=== PATIENT | female | born 1980 | race Caucasian/White ===

== ENCOUNTER 2017-07-15 11:50 | Day surgery (SDC) | payer OTHER ==
[2017-07-14 08:13] VITALS: BMI 27.8
[2017-07-15] MEDS ORDERED: Lactated Ringer's 1,000 ML IV ONE ×2 (14:27)
[2017-07-15] MEDS ORDERED: Midazolam 2 MG/2 ML VIAL ONE (14:54)
[2017-07-15] MEDS ORDERED: Propofol 10 mg/ml Inj (20 ML) ONE (14:54)
[2017-07-15] MEDS ORDERED: ceFAZolin IV 1 gm in Dextrose 1 GM/50 ML BAG IVPB ONE (15:00)
--- NOTE | 2017-07-15 15:42 | PCM.SURG1 ---
Surgeon's Initial Post Op Note - Surgeon's Notes Surgeon: amaya rivas md Window/Distribution Clerk: none Type of Anesthesia: General Endo, Local Pre-Operative Diagnosis: Chronic pelvic pain. Embedded IUD. Abnormal uterine bleeding Operative Findings: IUD embeded in posterior uterine wall lower uterine segment. Cervical polyp on posterior cervical lip. small endometrial polyps Post-Operative Diagnosis: Chronic pelvic pain. Embedded IUD. Abnormal uterine bleeding. Cervical polyps Operation Performed: hysteroscopic operative removal of IUD. D&C polypectomy. Cervical polyp excision Specimen/Specimens Removed: Endometrial curratage. Cervcical polyp. Paraguard IUD Estimated Blood Loss: EBL {In ML}: 5 Blood Products Given: N/A Drains Used: No Drains Post-Op Condition: Good Date of Surgery/Procedure: 07/15/17 Time of Surgery/Procedure: 15:42
--- NOTE | 2017-07-15 15:47 | PCM.OP ---
Operative Report - Operative Report Date of Surgery/Procedure: 07/15/17 Time of Surgery/Procedure: 15:44 Surgeon: amaya rivas md Electroencephalogram Technologist: none Anesthesia/Sedation: general with LMA Pre-Operative Diagnosis: Chronic pelvic pain. embedded IUD Post-Operative Diagnosis: Chronic pelvic pain. embedded IUD. Cervical polyp. Endometrial polyps Indication for Surgery: worsening pelvic pain. dyaparunia. embeded iud Operative Findings: IUD embedded in posterior lower uterine segment. cervical and endometrial polyps Procedure/Operation Description: hysteroscopic removal of IUD. hysteroscopic polypectomy. cerviccal polyp removal. D&C hysterescopy. . Detailed oparative report. DESCRIPTION: This is a 37 years old female with long- standing and worsening symptoms of pelvic pain. The patient described these symptoms to be debilitating and affecting her quality of life. Recent US showed embedded IUD, possible polyps in endoemtrial cavity. Decision was made to attempt a Hysteroscopic resection of polyps and removal of embedded iud. A prolong and detailed discussion about conservative versus surgical management of uterine fibroids was completed. The patient elected to proceed with surgical management, namely a Hysteroscopic resection. After proper consent was obtained from the patient, patient was taken to the operating room, placed in the dorsolithotomy position; general anesthesia was obtained without difficulty. She was draped and prepped appropriately for hysteroscopic procedure , her legs were placed in adjustable Medhat stirrups, and careful attention was placed to avoid hyperflexion or hypertrophic and of the lower extremities at the hip or knee joints. Montero catheter was inserted under sterile conditions. A dilator was inserted into the cervix, cervix dilated and hysteroscopy was advanced into the endometrial cavity and initial survey of the cavity showed an embedded iud in the posterior uterine wall. The IUD was grasped and carefully dislodged off the uterine wall. good hemostatis noted. A cervical polyp and endometrial polyps noted and resected and sent to pathology labeled appropriatly. Carefull D&C was completed due to multiple small polyps and degris in the endoemtrial cavity as noted on hysterescopic survey. All instruments removed under direct visualization, good hemostasis was noted. The patient emerged from general anesthesia without any difficulty. The patient was taken to the recovery room in stable condition. Prior to incision patient received prophylactic antibiotics, prior to closure sponge lap and needle counts are correct x2. Estimated Blood Loss: 5 Blood Replaced: none Sponge/Instrument Count: x2 Drains: none Complications: none Specimen: polyps and IUD Discharge & Condition: discharge home in stable condition with criteria met
[2017-07-15] MEDS ORDERED: Oxycodone/Acetaminophen 5/325 mg Tab PO PRN (15:51)
[2017-07-15] MEDS ORDERED: Albuterol-Ipratrop 3 mg / 0.5 (3 ml) UD ONE (15:57)
[2017-07-15] MEDS ORDERED: Sodium Chloride 0.9% 1,000 ML IV SCH (16:00)
[2017-07-15] MEDS ORDERED: Albuterol-Ipratrop 3 mg / 0.5 (3 ml) UD INH STA (16:06)
[2017-07-15] MEDS: HYDROmorphone 0.5 mg/0.5 ml ISec IVP PRN ×2 (16:06→16:21)
[2017-07-15] MEDS ORDERED: DiphenhydrAMINE 50 mg/ml Inj ONE (16:23)
[2017-07-15] MEDS ORDERED: Racepinephrine 2.25% Inhal Soln 0.5 ML UD INH ONE (16:27)
[2017-07-15] MEDS ORDERED: DiphenhydrAMINE 50 mg/ml Inj IVP STA (16:27)
--- NOTE | 2017-07-15 16:30 | CP.PCM.PN ---
Subjective - Date & Time of Evaluation Date of Evaluation: 07/15/17 Time of Evaluation: 15:50 - Subjective Subjective: patient transfered to recovery. patient states discomfort breathing, expriatory wheezing noted. duoneb treatment adminstered and solumederol. saturation and vitals stable will continue to monitor. Objective - Vital Signs/Intake and Output Vital Signs (last 24 hours): Temp Pulse Resp BP Pulse Ox 98.1 F 94 H 20 123/82 100 07/15/17 12:24 07/15/17 12:24 07/15/17 12:24 07/15/17 12:24 07/15/17 12:24 - Medications Medications: Current Medications Diphenhydramine HCl (Benadryl) 50 mg IVP STAT STA Stop: 07/15/17 16:28 Hydromorphone HCl (Dilaudid) 0.5 mg IVP Q15M PRN PRN Reason: Pain, severe (8-10) Stop: 07/15/17 17:52 Sodium Chloride (Sodium Chloride 0.9%) 1,000 mls @ 100 mls/hr IV .Q10H VICKIE Ondansetron HCl (Zofran Inj) 4 mg IVP ONCE PRN PRN Reason: Nausea/Vomiting Oxycodone/Acetaminophen (Percocet 5/325 Mg Tab) 1 tab PO Q4 PRN PRN Reason: Pain, moderate (4-7) Stop: 07/18/17 15:52 Racepinephrine (Racepinephrine 2.25% Inhl Soln) 0.5 ml INH ONCE ONE Stop: 07/15/17 16:28
--- NOTE | 2017-07-15 16:33 | CP.PCM.PN ---
Subjective - Date & Time of Evaluation Date of Evaluation: 07/15/17 Time of Evaluation: 16:30 - Subjective Subjective: patient reassed, no expriatory wheezing noted, patient now complaining of her tongue being heavy. she also now discloses that she has an allergy to toradol. bendadryl 50mg and racemic epinephrine adminstered. vitals stable. will montior Objective - Vital Signs/Intake and Output Vital Signs (last 24 hours): Temp Pulse Resp BP Pulse Ox 98.1 F 94 H 20 123/82 100 07/15/17 12:24 07/15/17 12:24 07/15/17 12:24 07/15/17 12:24 07/15/17 12:24 - Medications Medications: Current Medications Diphenhydramine HCl (Benadryl) 50 mg IVP STAT STA Stop: 07/15/17 16:28 Hydromorphone HCl (Dilaudid) 0.5 mg IVP Q15M PRN PRN Reason: Pain, severe (8-10) Stop: 07/15/17 17:52 Sodium Chloride (Sodium Chloride 0.9%) 1,000 mls @ 100 mls/hr IV .Q10H VICKIE Ondansetron HCl (Zofran Inj) 4 mg IVP ONCE PRN PRN Reason: Nausea/Vomiting Oxycodone/Acetaminophen (Percocet 5/325 Mg Tab) 1 tab PO Q4 PRN PRN Reason: Pain, moderate (4-7) Stop: 07/18/17 15:52 Racepinephrine (Racepinephrine 2.25% Inhl Soln) 0.5 ml INH ONCE ONE Stop: 07/15/17 16:28
[2017-07-15 17:54] VITALS: TEMP 98
--- NOTE | 2017-07-15 18:37 | CP.PCM.PN ---
Subjective - Date & Time of Evaluation Date of Evaluation: 07/15/17 Time of Evaluation: 18:30 - Subjective Subjective: patient reassessed, sitting comfortable in bed on room air. no further complaints noted. will discharge patient accordingly. if further symptoms experienced patient advised to report to ER. Objective - Vital Signs/Intake and Output Vital Signs (last 24 hours): Temp Pulse Resp BP Pulse Ox 98 F 93 H 14 132/78 100 07/15/17 17:45 07/15/17 17:45 07/15/17 17:45 07/15/17 17:45 07/15/17 17:45 - Medications Medications: Current Medications Sodium Chloride (Sodium Chloride 0.9%) 1,000 mls @ 100 mls/hr IV .Q10H VICKIE Ondansetron HCl (Zofran Inj) 4 mg IVP ONCE PRN PRN Reason: Nausea/Vomiting Oxycodone/Acetaminophen (Percocet 5/325 Mg Tab) 1 tab PO Q4 PRN PRN Reason: Pain, moderate (4-7) Stop: 07/18/17 15:52
[2017-07-15 19:07] VITALS: BP 127/73; PULSE 97; RESP 20; O2SAT 98
== END 2017-07-15 19:02 | disposition home or self-care (01) ==
LOC: C.SDS 11:50
PROVIDERS: ATTEND Obstetrics & Gynecology
DX: T83.32XA Displacement of intrauterine contraceptive device, initial encounter (principal); N84.1 Polyp of cervix uteri; N84.0 Polyp of corpus uteri; D25.9 Leiomyoma of uterus, unspecified; Y76.2 Prosthetic and other implants, materials and accessory obstetric and gynecological devices associated with adverse incidents; R06.2 Wheezing
CPT/HCPCS: 58562; 88300; 88305; J0690; J1170; J1200; J2250; J2704; J2930; J3010; J7120

== ENCOUNTER 2017-07-24 09:50 | Observation (INO) | payer OTHER ==
[2017-07-14 08:13] VITALS: BMI 27.8
[2017-07-24 10:56] LABS: BASO # 0.1 K/uL (0.0-0.2); EOS # 0.1 K/uL (0.0-0.7); EOS % 1.7 % (0.0-4.0); HEMOGLOBIN 14.6 g/dL (11.0-16.0); LYMPH # 2.3 K/uL (1.0-4.3); LYMPH % 30.2 % (20.0-40.0); MEAN CELL VOLUME 87.1 fL (81.0-99.0); MEAN CORPUSCULAR HEMOGLOBIN 28.7 pg (27.0-31.0); MEAN PLATELET VOLUME 9.7 fL (7.2-11.7); MONO # 0.4 K/uL (0.0-0.8); MONO % 5.6 % (0.0-10.0); NEUT # 4.8 K/uL (1.8-7.0); NEUT % 61.5 % (50.0-75.0); NRBC % 0.1 % (0.0-2.0); RBC 5.09 Mil/uL (3.80-5.20); RED CELL DISTRIBUTION WIDTH 14.4 % (11.5-14.5); WHITE BLOOD COUNT 7.8 K/uL (4.8-10.8)
[2017-07-24 11:03] LABS: PROTHROMBIN TIME 11.7 SECONDS (9.7-12.2)
[2017-07-24 11:13] LABS: BLOOD UREA NITROGEN 9 mg/dL (7-17); CALCIUM 8.1 mg/dl (8.6-10.4); GFR AFRICAN-AMERICAN > 60; GFR NON-AFRICAN AMERICAN > 60
[2017-07-24] MEDS ORDERED: ceFAZolin IV 2 gm in Dextrose 2 GM/50 ML BAG IVPB ONE (12:37)
[2017-07-24] MEDS ORDERED: Bupivacaine-Epi 0.25%-1:200,000 PF Inj ONE (12:37)
[2017-07-24] MEDS ORDERED: Midazolam 2 MG/2 ML VIAL ONE (13:34)
[2017-07-24] MEDS ORDERED: Rocuronium 10 mg/ml (5 ml) ONE (13:35)
[2017-07-24] MEDS ORDERED: Propofol 10 mg/ml Inj (20 ML) ONE (13:35)
[2017-07-24] MEDS ORDERED: Lactated Ringer's 1,000 ML IV ONE ×2 (13:40→14:10)
[2017-07-24] MEDS ORDERED: Clindamycin 2% Vaginal Cream(40 gm) ONE (15:22)
[2017-07-24] MEDS ORDERED: Albuterol 0.083% Inhal Sol (2.5 mg/3 mL) UD INH PRN (15:41)
--- NOTE | 2017-07-24 15:45 | PCM.SURG1 ---
Surgeon's Initial Post Op Note - Surgeon's Notes Surgeon: amaya rivas md Theology Teacher: fran tucker Type of Anesthesia: General Endo, Local Pre-Operative Diagnosis: chronic pelvic pain. uterine prolapse. urinary incontinence. rectocele Operative Findings: endometriosis stage II. epical uterine prolpase. normal appearing ovaries. normal bladder anatomy Post-Operative Diagnosis: chronic pelvic pain. uterine prolapse. urinary incontinence. rectocele. endometriosis. posterior vaginal wall mass ulcerated Operation Performed: Total robotic hysterecotmy bilateral salpingectomy. Uterosacroligament suspenssion. Excision of vaginal wall mass. Posterior colporhaphy. Ablation of endometriosis. Diagnostic cystoscopy Specimen/Specimens Removed: uterus, cervix tubes and vaginal wall mass and mucosa Estimated Blood Loss: EBL {In ML}: 10 Blood Products Given: N/A Drains Used: No Drains Post-Op Condition: Good Date of Surgery/Procedure: 07/24/17 Time of Surgery/Procedure: 15:46
[2017-07-24] MEDS ORDERED: Morphine 4 MG/ML VIAL IVP PRN (15:48)
--- NOTE | 2017-07-24 15:48 | PCM.OP ---
Operative Report - Operative Report Date of Surgery/Procedure: 07/24/17 Time of Surgery/Procedure: 15:46 Surgeon: Akira rivas MD Hamper Maker: Praveena JOHNSON Anesthesia/Sedation: Gen with ET tube Pre-Operative Diagnosis: Chronic pelvic pain. Uterine prolapse. Mixed urinary incontinence. Rectocele Post-Operative Diagnosis: Chronic pelvic pain. Uterine prolapse. Mixed urinary incontinence. Rectocele. Endometriosis. Posterior vaginal wall mass ( ulcerated) Indication for Surgery: Operation Performed: Total robotic hysterecotmy bilateral salpingectomy. Uterosacroligament suspenssion. Excision of vaginal wall mass. Posterior colporhaphy. Ablation of endometriosis. Diagnostic cystoscopy. Specimen/Specimens Removed: uterus, cervix tubes and vaginal wall mass and mucosa Operative Findings: epical uterine prolpase. rectocele. posterior vaginal wall mass. normal bladder and ureters anatomy Procedure/Operation Description: Total robotic hysterecotmy bilateral salpingectomy. Uterosacroligament suspenssion colpopexy. Excision of vaginal wall mass. Posterior colporhap. Excision of endometriosis. Diagnostic cystoscopy. . Detailed Operative Report. This is a 37 years old female with Chronic pain, symptomatic uterine prolapse, rectocele and urinary incontinence. The patient completed an extensive preoperative workup, which included an ultrasound, as well as a Pap smear, chemistry and hematology studies. The patient reported these symptoms and problems as debilitating, and adversely affecting her quality of life. Following a period of failed conservative management, including removal of an embedded IUD, patient decision was made to proceed with a more invasive approach to address the above noted problems. A decision was finally made to proceed with a total robotic assisted hysterectomy, bilateral salpingectomy, and vaginal vault suspension. A detailed description of this robotic procedure was given to the patient, all risks and benefits of the surgical modality was reviewed, printed material was also given to the patient regarding robotic surgery. The patient fully understood all the risks and benefits and elected to proceed with this proposed procedure. The patient elected to proceed with hysterectomy due to the chronic pain, absolute contraindication in hormonal contraception and failed IUD placement. The patient was absolutely sure that she did not desire any future pregnancies and understands that definitive nature of a hysterectomy, excluding any chance of a future . After proper consent was obtained from the patient was taken to the operating room, proper patient identification was completed. She was placed in dorsal lithotomy position; general anesthesia was induced without difficulty. Her legs were placed in adjustable Medhat stirrups. Careful attention was placed not to over-flex or over-rotate the lower extremities at the hip or the knee joints. She was prepped and draped appropriately for robotic assisted hysterectomy. Montero catheter was inserted under sterile conditions. A weighted speculum was placed in the vagina, anterior lip of cervix was grasped with a tenaculum, and a V-care uterine manipulator was inserted through the cervix and secured. The weighted speculum and tenaculum were removed from the patient's vagina and attention was turned to the patient's abdomen. Local anesthetic solutions of 0.25% Marcaine with epinephrine were utilized to infiltrate the skin prior to all abdominal skin incisions. A total of 15 mL of 0.25% Marcaine was utilized throughout the procedure. While tenting the abdominal wall, a Veres needle was inserted through the umbilicus and a pneumoperitoneum was obtained. Approximately 1 cm below the umbilical fold, in the midline, a 1 cm incision was made with a scalpel and a trocar and sleeve were introduced. A robotic camera was inserted and an initial survey of the patient's abdomen revealed an enlarged bulky uterus , boggy in appearance. Both ovaries appeared normal with normal appearing fallopian tubes. The patient was placed in Trendelenburg position ready for a da Luz Elena robotic system to be docked. 2 robotic ports were utilized for this procedure. The first robotic port was placed on the patient's left side approximately 5 cm superior to the superior crest on the patient's left side, the second robotic port was placed 5 centimeters superior to the right superior iliac crest. All trocars were inserted under direct visualization. The placement of the trocars was all accomplished under careful and meticulous placement under direct visualization. Following the placement of all trocars, the da Luz Elena robotic system was docked in a parallel method without difficulty. The following instruments were utilized for this procedure: the bipolar cautery device, a monopolar esequiel. Prior to the start of the hysterectomy, both ureters and their courses were visualized, peristalsis bilaterally. On the patient's right side, the uteroovarian ligament and the round ligaments were identified cauterized and transected, the broad ligament was divided all the way down to the utero cervical junction bladder flap was then created by transecting the visceroperitoneum over the bladder reflection. In a similar fashion, the left round ligament, uteroovarian ligament and broad ligament were cauterized sealed and transected, taken down to the level of the cervical uterine junction. Uterine vessels on both sides were sealed and transected. The Uterosacral ligaments were sealed and transected. The monopolar esequiel and PK were utilized to complete the colpotomy incision around the care vaginal ring. Excellent hemostasis was noted. The uterus, cervix and fallopian tubes were delivered transvaginal through the colpotomy incision and sent to pathology for permanent analysis. The colpotomy incision was closed with 2-0 v LOC in a continuous fashion with excellent hemostasis. The vaginal vault suspension was achieved by suspending the vaginal cuff to the base of the uterosacral ligaments bilaterally. For uterosacral ligament suspension portion of the procedure, the ureters were once again identified to avoid possible compromise or kinking while suspending the vaginal vault. A 2-0 permanent suture material ( [place]Todd) was utilized to suspend the uterosacral ligaments from the base to the vaginal vault cuff incision including both anterior and posterior aspect of the colpotomy incision. Utilizing a 3-0 Monocryl suture, the peritoneum over the colpotomy incision and uterosacral ligaments was re-approximated in a continuous fashion. multiple endometriosis lessions were excised from the posteriori culdesac and sent to pathology. The abdomen was throughout irrigated and cleared of all clots and debris. FloSeal as well as Interceed was applied to the incision sites. Excellent hemostasis was again noted. All robotic and laparoscopic instruments removed under direct visualization. The robotic arms were undocked, and a da Luz Elena robotic system was wheeled away from the patient's bedside. Both department assistant and camera ports were closed at the fascial layer utilizing a 2-0 Vicryl suture material in interrupted fashion. Pneumoperitoneum was reduced and all skin incisions were closed utilizing 4-0 Monocryl in a subcutaneous fashion. Dermabond was applied to all incisions. A rectocele was noted with ulcerated lesion at the apex. A longitudinal incision was made into the posterior vaginal wall and the incision was extended towards the vaginal apex. The Ulcerated mass was excised full thickness, labeled and sent to pathology. The posterior wall the vagina was opened and the posterior defect was isolated. The mucosa was retracted laterally and the rectovaginal fascial defect was closed with multiple 0 Vicryl sutures in interrupted fashion. The posterior defect was closed without any undue tension. The mucosa was closed in continuous fashion with 2-0 Vicryl fashion. At the conclusion of this hysterectomy, a diagnostic cystoscopy was completed. The Montero catheter was removed; the bladder was distended with approximately 350 cc of normal saline. A 30 cystoscope was introduced and a survey of the bladder anatomy was completed. The base, and the dome of the bladder appeared normal, both ureteral orifices appeared normal and were efluxing urine freely. The urethra appeared normal. A Montero catheter was reinserted. Vaginal packing was inserted to be removed the next morning. Patient emerged from general anesthesia without difficulty, and was taken to recovery room in stable condition. Prior to incision the patient received antibiotics, prior to closure sponge lap and needle counts were correct x2. Estimated Blood Loss: 10 Blood Replaced: none Sponge/Instrument Count: count correct times 2 Drains: none Complications: none Specimen: Uterus cervix tubes and vaginal wall mass, mucosa Discharge & Condition: discharge home next day in stable condition
[2017-07-24] MEDS: HYDROmorphone 0.5 mg/0.5 ml ISec IVP PRN ×4 (16:04→17:00)
[2017-07-24] MEDS ORDERED: HYDROmorphone 0.5 mg/0.5 ml ISec IVP PRN ×2 (17:33→21:43)
[2017-07-24] MEDS ORDERED: HYDROmorphone 1 mg/ml ISec ONE (17:37)
[2017-07-24] MEDS ORDERED: HYDROmorphone 0.5 mg/0.5 ml ISec IVP ONE (17:45)
[2017-07-24] MEDS: Sodium Chloride 0.9% 1,000 ML IV SCH (18:00)
[2017-07-24] MEDS: ceFAZolin 1 GM in Sodium Chloride 0.9% 100 ML IVPB SCH (23:45)
[2017-07-25] MEDS: Sodium Chloride 0.9% 1,000 ML IV SCH
[2017-07-25] MEDS: Oxycodone/Acetaminophen 5/325 mg Tab PO PRN ×2 (01:17→10:13)
[2017-07-25] MEDS ORDERED: HYDROmorphone 1 mg/ml ISec IVP PRN (02:27)
[2017-07-25] MEDS ORDERED: HYDROmorphone 0.5 mg/0.5 ml ISec IVP PRN (02:33)
[2017-07-25] MEDS: ceFAZolin 1 GM in Sodium Chloride 0.9% 100 ML IVPB SCH ×2 (05:46→14:11)
[2017-07-25] MEDS ORDERED: Oxycodone/Acetaminophen 5/325 mg Tab PO PRN (10:23)
[2017-07-25] MEDS ORDERED: Albuterol HFA 90 mcg/actuation (8 g) INH PRN (12:41)
[2017-07-25 17:21] VITALS: BP 110/65; PULSE 98; RESP 20; TEMP 97; O2SAT 97
== END 2017-07-25 17:00 | disposition home or self-care (01) ==
LOC: C.SDS 09:50 → C.9S 15:48 → C.4M 19:43
PROVIDERS: ADMIT Obstetrics & Gynecology; ATTEND Obstetrics & Gynecology
DX: D06.9 Carcinoma in situ of cervix, unspecified (principal); N80.3 Endometriosis of pelvic peritoneum; N81.4 Uterovaginal prolapse, unspecified; R32 Unspecified urinary incontinence; G89.29 Other chronic pain
CPT/HCPCS: 36415; 57425; 58552; 80048; 84703; 85025; 85610; 85730; 86850; 86900; 88305; 88309; C2615; G0378; J0690; J1100; J1170; J2001; J2250; J2270; J2405; J2704; J3010; J7030; J7040; J7120